=== PATIENT | female | born 1945 | race Caucasian/White ===

== ENCOUNTER 2017-03-05 12:30 | Outpatient (RCR) | payer OTHER | END 2017-03-26 | disposition home or self-care (01) | LOC: PTY 12:30 | DX: M53.3 Sacrococcygeal disorders, not elsewhere classified (principal); G89.29 Other chronic pain ==

== ENCOUNTER 2017-04-17 15:13 | Outpatient (RCR) | payer OTHER | END 2017-04-26 | disposition home or self-care (01) | LOC: PTY 15:13 | DX: M53.3 Sacrococcygeal disorders, not elsewhere classified (principal); G89.29 Other chronic pain ==

== ENCOUNTER 2017-04-27 13:05 | Outpatient (RCR) | payer OTHER | END 2017-05-26 | disposition home or self-care (01) | LOC: PTY 13:05 | DX: M53.3 Sacrococcygeal disorders, not elsewhere classified (principal); G89.29 Other chronic pain; F32.9 Major depressive disorder, single episode, unspecified ==

== ENCOUNTER 2017-06-15 14:30 | Outpatient (RCR) | payer OTHER | END 2017-06-26 | disposition home or self-care (01) | LOC: PTY 14:30 | DX: M53.3 Sacrococcygeal disorders, not elsewhere classified (principal); G89.29 Other chronic pain | CPT/HCPCS: 97035; 97110; 97140; G0283 ==